=== PATIENT | male | born 1935 | race African-American/Black ===

== ENCOUNTER 2019-07-05 14:43 | Emergency (ER) | payer MEDICARE ==
[~2019-07-05] VITALS: Ht 172.7 cm; Wt 63.0 kg
[2019-07-05] MEDS ORDERED: ACETAMINOPHEN 325MG TABLET PO STA (21:38)
[2019-07-05 22:20] LABS: CHLORIDE 110 mEq/L (98-107)
[2019-07-05 22:27] LABS: BASOPHILS % 0.3 % (0.0-2.0); EOSINOPHILS % 0.1 % (0.0-5.0); HEMATOCRIT. 40.8 % (42.0-52.0); HEMOGLOBIN. 13.3 g/dL (14.0-18.0); LYMPHOCYTES % 7.9 % (20.0-50.0); MEAN CORPUSCULAR VOLUME 79.7 fL (80.0-94.0); MONOCYTES % 10.6 % (2.0-8.0); NEUTROPHILS % 81.1 % (40.0-76.0); PLATELET 251 x1000/uL (130-400); RED BLOOD CELL COUNT 5.12 mill/uL (4.7-6.1)
[2019-07-05 22:27] LABS: CLARITY URINE CLEAR (CLEAR); COLOR URINE YELLOW (YELLOW); KETONES URINE 1+ (NEGATIVE); LEUKOCYTE ESTERASE URINE NEGATIVE (NEGATIVE); NITRITE URINE NEGATIVE (NEGATIVE); OCCULT BLOOD URINE NEGATIVE (NEGATIVE); PROTEIN URINE NEGATIVE (NEGATIVE); SPECIFIC GRAVITY URINE 1.017 (1.005-1.030)
[2019-07-05] MEDS ORDERED: SODIUM CHLORIDE 0.9% 1,000 ML IV ONE (22:45)
[2019-07-05] MEDS ORDERED: IOHEXOL-300 100 ML BOTTLE ONE (23:19)
[2019-07-07 10:20] VITALS: BP 142/82
== END 2019-07-07 10:30 | disposition home or self-care (01) ==
LOC: ER 15:05
DX: R10.32 Left lower quadrant pain (principal); R94.4 Abnormal results of kidney function studies; I10 Essential (primary) hypertension; Z59.0 Homelessness; Z75.1 Person awaiting admission to adequate facility elsewhere
CPT/HCPCS: 36415; 71045; 74177; 80053; 81003; 83690; 83880; 84484; 85025; 93005; 96360; 96361; 99285; J7030; Q9967